=== PATIENT | male | born 1945 | race Caucasian/White ===

== ENCOUNTER 2019-05-26 07:57 | Day surgery (SDC) | payer MEDICARE, BC ==
[~2019-05-26] VITALS: Ht 182.9 cm; Wt 63.5 kg
--- NOTE | 2019-05-26 10:01 | NUR ---
PT IS ALERT, ORIENTED AND SUPPORTED BY HIS FAMILY. PT HAS TRAVELLED 3 HRS TO GET HERE TODAY, THANKED THEM FOR CHOOSING [facility]. PT SEEMS INFORMED, HAD FEW QUESTIONS. EXTENDED A BLESSING, WILL FOLLOW NEEDED
--- NOTE | 2019-05-26 12:15 | NUR ---
05/26/19 1215 Sheets,Miriam 1155 PT ARRIVED TO PACU ON 6L VIA MASK, PT REACTIVE TO PAINFUL STIMULI. 1205 PT MORE AWAKE AND O2 MASK REMOVED HOB INCREASED, PT COUGHING OFF AND ON, SUCTION USED SUCTION SCANT AMOUNT OF CLEAR SACREATIONS. 1210 PT RPEORTS "LARGE AMOUNT OF PAIN." UTILIZATION REVIEW RN STARTING NICHOLS MEDICATION. PT VERY DROWSY WITH EYES REMAIN CLOSED. PT REPORTS HE IS "WARM ENOUGH." 1214 PT RATES PAIN 7-8/10 PAIN ON RIGHT SIDE OF MOUTH.
--- NOTE | 2019-05-26 12:55 | NUR ---
1245 PT BACK TO ROOM FROM PACU AWAKE BUT DROWSY, COMPLAINS OF PAIN 04/18. DECLINES WATER.
--- NOTE | 2019-05-26 13:46 | NUR ---
1345 PT REPORTS PAIN IS MUCH BETTER AFTER DOSE OF HYDROCODONE. PT ATE A CUP OF APPLE SAUCE AND TOOK SIPS OF WATER TOLERATS WELL. DISCHARGE INSTRUCTIONS GIVEN TO PT, AND SON ALL VOICED UNDERSTANDING. PRISCRIPTION GIVEN TO FOR PAIN MEDS.
--- NOTE | 2019-05-26 14:18 | NUR ---
1350 PT REPORTS PAIN AT 3/10 AT DISCHARGE. PT WHEELED TO FRONT DOOR OF HOSPITAL VIA WHEELCHAIR BY RN.
--- NOTE | 2019-05-26 17:23 | OR ---
[facility] [address] [place], [place] [address] Signed DATE OF OPERATION: 05/26/2019 SURGEON: Woodrow Espinoza MD PREOPERATIVE DIAGNOSIS: Right medial mandibular lesion. POSTOPERATIVE DIAGNOSIS: Right medial mandibular lesion. PROCEDURE: Wide local excision of right oral mandibular lesion. ANESTHESIA: General orotracheal; OUTSIDE COLLECTOR; Meron. PREOPERATIVE HISTORY: Leah is a 73-year-old man who has had a lesion on the medial surface of the right mandible near the retromolar trigone tonsillar fossa for several months. Exam in the office shows an ulcerated exophytic lesion consistent with squamous cell carcinoma. He was taken to the operating room for wide local excision. OPERATIVE PROCEDURE AND FINDINGS: After informed consent, the patient was taken to the operating room, placed in supine position where general orotracheal anesthesia was induced. The patient and procedure were verified. The patient was repositioned. McIvor mouth gag placed into suspension with good exposure of the lesion. Lesion in question was exophytic, ulcerated, measured about 3 cm in greatest diameter and was on the medial surface of the right mandible just anterior to the tonsil fossa just medial to the retromolar trigone. The lesion was excised with needlepoint cautery with 5 mm margins. The lesion was excised, basically excising off the underlying muscle, medial pterygoid. The inferior portion of the lesion was close margin after excision of the major lesion that was sent to Pathology in formalin for permanent sections. The inferior margin of 5 mm or so was excised separately, sent as a separate specimen inferior margin. Bleeding was controlled with needle point cautery. Hemostasis was verified. The pharynx was suctioned clear of blood and secretions. Mouth gag was removed. The patient was then awakened, extubated, transported to recovery room in good condition. No complications. BLOOD LOSS: Minimal. Electronically Signed By: WOODROW ESPINOZA MD 05/26/19 1723 PATIENT NAME: LEAH GRAJEDA OPERATIVE REPORT DATE OF : 41 REPORT #: [id number] PHYSICIAN: WOODROW ESPINOZA MD PCP: DAYRON RUIZ MD REPORT IS CONFIDENTIAL AND NOT TO BE RELEASED WITHOUT AUTHORIZATION [address] [address] Signed SPECIMEN: To Pathology. Woodrow Espinoza MD GC/LELA /[id number] Copies: ~ Electronically Signed By: WOODROW ESPINOZA MD 05/26/19 1723 PATIENT NAME: LEAH GRAJEDA OPERATIVE REPORT DATE OF : 41 REPORT #: [id number] PHYSICIAN: WOODROW ESPINOZA MD PCP: DAYRON RUIZ MD REPORT IS CONFIDENTIAL AND NOT TO BE RELEASED WITHOUT AUTHORIZATION
--- NOTE | 2019-05-26 17:23 | PREHP ---
[facility] [address] [place], [place] [address] Signed ADMISSION DATE: 05/26/2019 CHIEF COMPLAINT: Right retromolar trigone lesion. HISTORY: Leah is a 73-year-old man with a 6-month history of right tongue discomfort and burning sensation. He says all the right side of his tongue is sore. He has some pain radiating to the right jaw to the right ear and he saw his dentist in October, and was referred to an oral surgeon in January. The oral surgeon saw some kind of a sore, which appeared to be healing. This problem has continued. He went to his primary, Dr. Wilberto cabezas in [place], [place] and has been referred for otolaryngologic evaluation. He is a smoker, occasional drinker, not heavy drinker. He has an ulcerated lesion on the right medial mandible near the retromolar trigone, which is very suspicious for neoplasia and he is being taken to the operating room at this time for excisional biopsy. 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 He has been in remission. He is followed by an oncologist in [place], [place] I believe by Dr. Leyva. No treatments currently and he is in remission. Otherwise healthy. He does have some chronic anemia, has had blood transfusions. ALLERGIES: No allergies to medications. CURRENT MEDICATIONS: No prescription, just Advil, viscous lidocaine, and hydrocodone. PAST SURGICAL HISTORY: Low back surgery in 1994. SOCIAL HISTORY: He is , retired. Lives in [place], but has been summering in [place], [place]. Positive tobacco history of smoking, occasional alcohol. FAMILY HISTORY: Unremarkable. PHYSICAL EXAMINATION: VITAL SIGNS: Stable, afebrile. GENERAL: Well-developed, well-nourished male, elderly. No distress. Exam with his Magaly present. Electronically Signed By: WOODROW GOLD MD 05/26/19 1723 PATIENT NAME: LEAH GRAJEDA PREOPERATIVE H&P DATE OF : 41 REPORT #: [id number] PHYSICIAN: WOODROW GOLD MD PCP: DAYRON RUIZ MD REPORT IS CONFIDENTIAL AND NOT TO BE RELEASED WITHOUT AUTHORIZATION [facility] [address] [place], [place] [address] Signed HEAD AND NECK: There is about 15 x 30 mm lesion on the right medial mandible posteriorly just below the retromolar trigone. This is leukoplakic inferiorly, but ulcerated and granular superiorly looks very much like a squamous cell carcinoma. Does appear to be adherent to the bone. No other extension. No other oral lesions and the neck has no masses. No adenopathy. Thyroid not palpable. Head and neck exam otherwise unremarkable. CHEST: Clear. HEART: Regular rate and rhythm. ABDOMEN: Benign. EXTREMITIES: Benign. NEUROLOGIC: Grossly intact. REVIEW OF RECORDS: Have an office note from Dr. Ladd on 05/04/2019, which I have reviewed. IMPRESSION: Right oral lesion very suspicious for carcinoma. RECOMMENDATION: We will take him to the OR at [facility] in [place], [place] on 05/26/2019 for general anesthetic excisional biopsy of this lesion. We will try to remove it completely and obtain a definitive diagnosis. Further recommendations pending this surgical procedure. The risks of surgery including bleeding, infection, failure to heal, and the need for further treatment pending diagnosis above and explained and accepted. Woodrow Gold MD /MODL /[id number] Copies: ~ Electronically Signed By: WOODROW GOLD MD 05/26/19 1723 PATIENT NAME: LEAH GRAJEDA PREOPERATIVE H&P DATE OF : 41 REPORT #: [id number] PHYSICIAN: WOODROW GOLD MD PCP: DAYRON RUIZ MD REPORT IS CONFIDENTIAL AND NOT TO BE RELEASED WITHOUT AUTHORIZATION
--- NOTE | 2019-05-26 19:42 | EKG ---
[facility] [address] [facility] [place], [place] [address] Signed Normal sinus rhythm Normal ECG No previous ECGs available Confirmed by MICHI RICE DO ([id number]) on 05/26/2019 7:42:11 PM Electronically Signed By: MICHI RICE DO 05/26/191941 PATIENT NAME: LEAH GRAJEDA Electrocardiogram DATE OF : 41 PHYSICIAN: MICHI RICE DO REPORT #: [id number] REPORT IS CONFIDENTIAL AND NOT TO BE RELEASED WITHOUT AUTHORIZATION
--- NOTE | 2019-05-28 14:40 | PATH ---
[facility] [address] [place], [place] [address] Signed SPECIMEN(S): A RIGHT POSTERIOR MANDIBLE SPECIMEN(S): B INFERIOR MANDIBLE SPECIMEN SOURCE: A. RIGHT POSTERIOR MANDIBLE B. INFERIOR MANDIBLE CLINICAL HISTORY: Right retromolar trigone lesion. FINAL PATHOLOGIC DIAGNOSIS: A. 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 - Maximum tumor dimension: 1 cm. - Depth of invasive: 4 millimeters. - Lymph-vascular invasion: Not identified. - Perineural invasion: Not identified. - Neoplasm negative for HPV by p16 immunostain. - AJCC: pT1 B. Mucosa, inferior mandible, biopsy: - Focal minimal squamous atypia, negative for overt dysplasia. - Mild chronic inflammation. As part of [facility] software quality assurance specialist program this case has been reviewed by another member of our pathology staff. LJA:cml:C1NR MICROSCOPIC EXAMINATION: Histologic sections of all submitted blocks are examined by light microscopy. These findings, together with the gross examination, support the pathologic diagnosis. GROSS DESCRIPTION: Two specimens are received in two containers, labeled "MARTINEZ." A. The specimen, labeled "MARTINEZ, right posterior mandible," is received in formalin and consists of a 2.2 x 1.6 x 0.7 cm griffin-brown nodular and ulcerating portion of skin. Specimen is entirely submitted in cassettes (A1-A2). B. The specimen, labeled "MARTINEZ, inferior mandible (additional tissue)," is received in formalin and consists of a 1.0 x 0.4 cm strip of griffin skin. Specimen PATIENT NAME: LEAH GRAJEDA PATHOLOGY DATE OF : 41 REPORT #: [id number] PHYSICIAN: [facility] PCP: DAYRON RUIZ MD REPORT IS CONFIDENTIAL AND NOT TO BE RELEASED WITHOUT AUTHORIZATION [facility] [address] [place] [address] Signed is entirely submitted in cassette (B1). AM (under the direct supervision of a pathologist) The Gross Description was prepared using a voice recognition system. The report was reviewed for accuracy; however, sound-alike word errors, addition and/or deletions may occur. If there is any question about this report, please contact Client Services. ADDITIONAL NOTES: Immunohistochemical and/or in situ hybridization studies were performed on this case with the appropriate positive controls that react as expected. This test was developed and its performance characteristics determined by [facility]. It has not been cleared or approved by the U.S. Food and Drug Administration. The FDA has determined that such clearance or approval is not necessary. This test is used for clinical purposes. It should not be regarded as investigational or for research. [facility] is certified under the Clinical Laboratory Improvement Amendments of 1988 (CLIA) as qualified to perform high complexity clinical laboratory testing. PERFORMING LABORATORY: The technical component was performed by [facility], [address] [place] [id number] (Client Experience Specialist: Renetta Oden MD; CLIA# [id number]). Professional interpretation was performed by [facility], [address] [address] (Client Experience Specialist: Tulio Palafox MD; CLIA# [id number]). Diagnostician: Tulio Palafox MD Pathologist Electronically Signed 05/28/2019 Copies: ~ PATIENT NAME: LEAH GRAJEDA MARY PATHOLOGY DATE OF : 41 REPORT #: [id number] PHYSICIAN: [facility] PCP: DAYRON RUIZ MD REPORT IS CONFIDENTIAL AND NOT TO BE RELEASED WITHOUT AUTHORIZATION
== END 2019-05-26 14:00 | disposition home or self-care (01) ==
LOC: OPS 07:57 → DS 07:57 → OPS 10:30 → DS 10:30 → OPS 14:00
PROVIDERS: Otolaryngology
PROC: 0WB30ZZ Excision of Oral Cavity and Throat, Open Approach (ICD-10-PCS; principal; 2019-05-26 10:30)
DX: C06.0 Malignant neoplasm of cheek mucosa (principal); K12.1 Other forms of stomatitis
CPT/HCPCS: 00170; 36415; 71046; 80048; 85025; 93005; 93010; J0131; J0330; J1100; J1885; J2250; J2704; J3010